=== PATIENT | female | born 1995 | race Caucasian/White ===

== ENCOUNTER 2024-12-25 06:30 | Inpatient (IN) | payer OTHER ==
[2024-12-25 06:39] VITALS: BMI 31.5
[2024-12-25] MEDS ORDERED: Methylergonovine 0.2 MG/ML VIAL IM PRN ×2 (06:39)
[2024-12-25] MEDS ORDERED: Ondansetron PF 4 MG/2 ML Vial IVP PRN ×3 (06:39→09:42)
[2024-12-25] MEDS ORDERED: Diphenoxylate HCl/Atropine Tablet PO PRN ×3 (06:39)
[2024-12-25] MEDS ORDERED: hydrALAZINE 20 MG/ML VIAL SLOW IVP PRN ×3 (06:39→09:42)
[2024-12-25] MEDS ORDERED: Ibuprofen 800 MG TAB PO PRN (06:39)
[2024-12-25] MEDS ORDERED: Carboprost 250 MCG/ML AMP IM PRN ×2 (06:39)
[2024-12-25] MEDS ORDERED: HYDROcodone/Acetaminophen 5/325 mg Tablet PO PRN (06:39)
[2024-12-25] MEDS ORDERED: Acetaminophen 500 MG TAB PO PRN (06:39)
[2024-12-25] MEDS ORDERED: Lidocaine 1% (PF) 30 ML VIAL SC PRN ×2 (06:39)
[2024-12-25] MEDS ORDERED: Tranexamic Acid 1,000 MG/10 ML VIAL IVP PRN ×2 (06:39)
[2024-12-25] MEDS ORDERED: Oxytocin 30 units/NS 500 ML 500 ML IV SCH ×2 (06:45)
[2024-12-25] MEDS: Ibuprofen 800 MG TAB PO PRN (07:28)
[2024-12-25] MEDS ORDERED: Milk Of Magnesia 30 ML UDCUP PO PRN (09:42)
[2024-12-25] MEDS ORDERED: diphenhydrAMINE 25 MG CAP PO PRN (09:42)
[2024-12-25] MEDS ORDERED: Bisacodyl 10 MG SUPP PR PRN (09:42)
[2024-12-25] MEDS ORDERED: Lanolin Ointment 7 GM TUBE TOP PRN (09:42)
[2024-12-25] MEDS: Oxytocin 30 units/NS 500 ML 500 ML ONE (09:44)
[2024-12-25] MEDS: Boostrix 0.5 ML (Tdap) VIAL (>/=7 yrs of age) IM ONE (10:03)
[2024-12-25] MEDS: Ferrous Sulfate 325 MG TAB PO SCH (10:03)
[2024-12-25 10:16] LABS: Hematocrit 32.3 % (34.9-44.5); Hemoglobin 10.9 g/dL (12.0-15.5); Mean Corpuscular Hemoglobin 31.0 pg (27.0-33.0); Mean Corpuscular Volume 91.8 fL (81.6-98.3); Platelet Count 191 10x3/uL (150-450); Red Blood Cell (RBC) Count 3.52 10x6/uL (3.90-5.03); White Blood Cell (WBC) Count 13.08 10x3/uL (3.5-10.5)
[2024-12-25 10:49] LABS: Hep B Surf Ag - L&D Non-Reactive S/CO (NonReactive)
[2024-12-25 10:51] LABS: Syphilis Antibody Index 0.05 S/CO (<1.00 Non-Reactive)
[2024-12-25] MEDS: Benzocaine-Menthol 82.5 ML CAN TOP PRN (11:04)
[2024-12-25] MEDS: Ibuprofen 800 MG TAB PO SCH (13:09)
[2024-12-26 08:00] VITALS: BP 102/65; TEMP 98
[2024-12-26] MEDS: HYDROcodone/Acetaminophen 5/325 mg Tablet PO PRN (10:21)
== END 2024-12-26 12:45 | disposition home or self-care (01) | DRG 807 ==
LOC: CSHLD 06:30 → CSHPP 09:20
PROVIDERS: ADMIT Family Medicine; ATTEND Family Medicine
PROC: 10E0XZZ Delivery of Products of Conception, External Approach (ICD-10-PCS; principal; 2024-12-25)
PROC: 4A1HXCZ Monitoring of Products of Conception, Cardiac Rate, External Approach (ICD-10-PCS; 2024-12-25)
DX: O80 Encounter for full-term uncomplicated delivery (principal); Z37.0 Single live birth; Z3A.39 39 weeks gestation of pregnancy; Z79.899 Other long term (current) drug therapy
CPT/HCPCS: 36415; 85027; 86780; 86850; 86900; 86901; 87340; 99285